=== PATIENT | female | born 1980 | race Caucasian/White ===

== ENCOUNTER 2021-09-26 04:52 | Emergency (ER) | payer OTHER ==
[2021-09-26] MEDS ORDERED: ZOFRAN ODT 4 MG ONE (05:21)
[2021-09-26] MEDS ORDERED: ZOFRAN ODT 4 MG PO ONE (05:21)
--- NOTE | 2021-09-26 05:26 | ERPHSYRPT ---
- History of Present Illness Patient Subjective Stated Complaint: "I think I have food poisoning." Triage Nursing Assessment: Patient reported diarrhea the night before on 09/25/21. She took OTC anti-diarrheals which resolved the diarrhea. She presented reporting vomiting which has since resolved. She denied any abdominal pain, nausea, vomiting at this time. Abdomen obese non-distended, non-surgical, and without peritoneal signs. Bowel sounds present in all quadrants. No palpable tenderness, voluntary/involuntary guarding, pulsatile masses, or organomegaly. Physician History: Patient is a 41-year-old white female who states that she ate some pepperoni which she thinks was bad yesterday and developed diarrhea which she treated with [id number] meds. She then developed nausea and vomiting that lasted for a few hours and then resolved spontaneously. She is scheduled to work today. Timing/Duration: yesterday, resolved prior to arrival Activities at Onset: none Quality: cramping Abdominal Pain Onset Location: generalized abdomen Pain Radiation: no radiation Severity of Pain-Max: moderate Severity of Pain-Current: mild Modifying Factors: Improves With: defecating, vomiting Associated Symptoms: diarrhea, nausea, vomiting Previous symptoms: no prior history Allergies/Adverse Reactions: aspirin Allergy (Verified 09/26/21 05:06) codeine Allergy (Verified 09/26/21 05:06) Penicillins Allergy (Verified 09/26/21 05:06) Hx Tetanus, Diphtheria Vaccination/Date Given: Yes Hx Influenza Vaccination/Date Given: No Travel Risk - International Travel Have you traveled outside of the country in past 3 weeks: No - Coronavirus Screening Are you exhibiting any of the following symptoms?: No Close contact with a COVID-19 positive Pt in past 14-21 Days: No - Vaccine Status Have you recieved a Covid-19 vaccination: No - Review of Systems Constitutional: No Fever, No Chills Eyes: No Symptoms Ears, Nose, & Throat: No Symptoms Respiratory: No Cough, No Dyspnea Cardiac: No Chest Pain, No Edema, No Syncope Abdominal/Gastrointestinal: Abdominal Pain, Nausea, Vomiting, Diarrhea Genitourinary Symptoms: No Dysuria Musculoskeletal: No Back Pain, No Neck Pain Skin: No Rash Neurological: No Dizziness, No Focal Weakness, No Sensory Changes Psychological: No Symptoms Endocrine: No Symptoms All Other Systems: Reviewed and Negative - Past Medical History Pertinent Past Medical History: No - Past Surgical History Past Surgical History: Yes Female Surgical History: Tubal Ligation - Social History Smoking Status: Current every day smoker How long have you smoked: 1 Exposure to second hand smoke: No Drug Use: none Patient Lives Alone: No - Female History Hx Now: No - Nursing Vital Signs Nursing Vital Signs: Initial Vital Signs Temperature 97.4 F 09/26/21 04:54 Pulse Rate 98 H 09/26/21 04:54 Respiratory Rate 18 09/26/21 04:54 Blood Pressure 143/100 09/26/21 04:54 O2 Sat by Pulse Oximetry 99 09/26/21 04:54 Pain Scale Pain Intensity 0 - Physical Exam General Appearance: no apparent distress, alert Eye Exam: PERRL/EOMI, eyes nml inspection Ears, Nose, Throat Exam: normal ENT inspection, pharynx normal, moist mucous membranes Neck Exam: normal inspection, non-tender, supple, full range of motion Respiratory Exam: normal breath sounds, lungs clear, No respiratory distress Cardiovascular Exam: regular rate/rhythm, normal heart sounds Gastrointestinal/Abdomen Exam: soft, No tenderness, No mass Back Exam: normal inspection, normal range of motion, No CVA tenderness, No vertebral tenderness Extremity Exam: normal inspection, normal range of motion, pelvis stable Neurologic Exam: alert, oriented x 3, cooperative, normal mood/affect, nml cerebellar function, sensation nml, No motor deficits Skin Exam: normal color, warm, dry SpO2 Interpretation: normal SpO2: 99 O2 Delivery: Room Air - Course Nursing assessment & vital signs reviewed: Yes EKG Interpreted by Me: RATE Ordered Tests: Medication Summary Discontinued Medications Generic Name Dose Route Start Last Admin Trade Name Susana PRN Reason Stop Dose Admin Ondansetron HCl 4 mg 09/26/21 05:21 09/26/21 05:22 Zofran 4 Mg/Udtablet Orally Disintegrating PO 09/26/21 05:22 4 mg STAT ONE Administration Ondansetron HCl Confirm 09/26/21 05:21 Zofran 4 Mg/Udtablet Orally Disintegrating Administered 09/26/21 05:22 Dose 4 mg .R[employer]TE [employer]MED ONE - Progress Progress: improved - Departure Departure Disposition: Home Clinical Impression: Gastroenteritis Condition: Stable Critical Care Time: No Instructions: Viral Gastroenteritis, Adult (DC) Forms: Work/School Release Form Prescriptions: Ondansetron ODT 4 MG [Zofran Odt 4 mg] 4 mg PO Q6H PRN PRN #10 tablet PRN Reason: Vomiting
[2021-09-26 06:10] VITALS: BP 125/72; PULSE 72; O2SAT 98
== END 2021-09-26 06:10 | disposition home or self-care (01) ==
LOC: ED 04:52
DX: K52.9 Noninfective gastroenteritis and colitis, unspecified (principal); R11.2 Nausea with vomiting, unspecified; R10.84 Generalized abdominal pain; Z72.0 Tobacco use
CPT/HCPCS: 99283; Q0162